=== PATIENT | female | born 1980 | race Caucasian/White ===

== ENCOUNTER 2016-10-23 11:34 | Emergency (ER) | payer OTHER ==
[~2016-10-23] VITALS: Ht 165.1 cm; Wt 45.5 kg
[~2016-10-23 11:34] MED LIST: ATIVAN0.5 MG PO; BENADRYL25 MG PO; BENTYL20 MG PO; DOXYCYCLINE HY100 MG PO; ENDOCET 5-3251 EACH PO; FLEXERIL10 MG PO; FLEXERIL5 MG PO; GUMMIES CHILDR1 EACH PO; HYDROCODON-ACE1 EAC7 PO; IBUPROFEN800 MG PO; LEXAPRO20 MG PO; MELATONIN5 M1 PO; MOTRIN400 MG PO; MOTRIN800 MG PO; OXAYDO5 MG PO; OXYCODONE HCL5 MG PO; PERCOCET 5/31 TABLET PO; TIZANIDINE HCL4 MG PO; TUMS DUAL ACTI1 EACH PO; TUMS500 MG PO; TYLENOL REGULA325 MG PO; ZOFRAN4 MG PO; ZOLOFT50 MG PO
[2016-10-23 12:11] LABS: HEMATOCRIT 38.1 % (36.0-46.0); MCH 29.6 PG (29.0-34.0); MCHC 35.2 G/DL (30.0-36.0); MCV 84.3 FL (83-99); PLATELET COUNT 211 K/uL (156-360); RBC DIS.WIDTH-CV 12.1 % (11.8-14.6); RBC DIS.WIDTH-SD 36.9 % (39-53); RED BLOOD COUNT 4.52 M/uL (3.80-5.20); WHITE BLOOD COUNT 7.9 K/uL (4.1-10.2)
[2016-10-23 12:22] LABS: CHLORIDE 108 mEq/L (99-109); POTASSIUM 3.8 mEq/L (3.7-5.4); SODIUM 140 mEq/L (136-147)
[2016-10-23 12:23] LABS: GLUCOSE 88 mg/dL (70-99)
[2016-10-23 12:25] LABS: ANION GAP 9 MEQ/L (2-14)
[2016-10-23 12:27] LABS: GFR ESTIMATE (CALCULATED) > 59 mL/min/; SERUM ETHYL ALCOHOL < 10 mg/dL
[2016-10-23 12:28] LABS: UREA NITROGEN (BUN) 14 mg/dL (9-23)
[2016-10-23 12:45] LABS: INTERNAL CONTROL VALID? YES
[2016-10-23 12:55] LABS: AMPHETAMINE NEGATIVE (500 ng/mL); BARBITURATES NEGATIVE (200 ng/mL); BENZODIAZEPINES NEGATIVE (150 ng/mL); COCAINE NEGATIVE (150 ng/mL); METHADONE NEGATIVE (200 ng/mL); METHAMPHETAMINE NEGATIVE (500 ng/mL); OPIATES (MORPHINE) NEGATIVE (100 ng/mL); OXYCODONE PRESUMPTIVE POSITIVE (100 ng/mL); PHENCYCLIDINE NEGATIVE (25 ng/mL); PROPOXYPHENE NEGATIVE (300 ng/mL); THC CANNABINOIDS NEGATIVE (50 ng/mL); TRICYCLIC ANTIDEPRESSANTS NEGATIVE (300 ng/mL)
[2016-10-23 12:56] LABS: INTERNAL CONTROLS VALID? YES
[2016-10-23 13:45] VITALS: BP 119/69
== END 2016-10-23 14:17 | disposition home or self-care (01) ==
LOC: EME 11:34
PROVIDERS: Emergency Medicine
DX: F43.24 Adjustment disorder with disturbance of conduct (principal); F17.200 Nicotine dependence, unspecified, uncomplicated
CPT/HCPCS: 80048; 84703; 85027; 90837; 99281; 99285; G0480

== ENCOUNTER 2017-08-28 00:25 | Emergency (ER) | payer OTHER ==
[~2017-08-28] VITALS: Ht 167.6 cm; Wt 47.1 kg
[2017-08-28 01:11] LABS: HEMATOCRIT 42.9 % (36.0-46.0); HEMOGLOBIN 14.9 G/DL (11.9-15.5); MCH 30.3 PG (29.0-34.0); MCHC 34.7 G/DL (30.0-36.0); MCV 87.4 FL (83-99); PLATELET COUNT 271 K/uL (156-360); RBC DIS.WIDTH-CV 12.6 % (11.8-14.6); RBC DIS.WIDTH-SD 39.9 % (39-53); RED BLOOD COUNT 4.91 M/uL (3.80-5.20); WHITE BLOOD COUNT 13.5 K/uL (4.1-10.2)
[2017-08-28 01:21] LABS: ALBUMIN 4.4 g/dL (3.2-4.8)
[2017-08-28 01:22] LABS: CHLORIDE 105 mEq/L (99-109); POTASSIUM 4.3 mEq/L (3.7-5.4); SODIUM 140 mEq/L (136-147)
[2017-08-28 01:24] LABS: GLUCOSE 109 mg/dL (70-99); TOTAL PROTEIN 7.5 g/dL (6.4-8.3)
[2017-08-28 01:26] LABS: TOTAL BILIRUBIN 0.5 mg/dL (0.0-1.0)
[2017-08-28 01:27] LABS: ALKALINE PHOSPHATASE 54 IU/L (3-129); SERUM ETHYL ALCOHOL < 10 mg/dL
[2017-08-28 01:28] LABS: CREATININE 0.8 mg/dL (0.6-1.3); GFR ESTIMATE (CALCULATED) > 59 mL/min/
[2017-08-28 01:29] LABS: AST (GOT) 12 IU/L (2-34); UREA NITROGEN (BUN) 13 mg/dL (9-23)
[2017-08-28 01:31] LABS: ALT (GPT) 11 IU/L (3-49)
[2017-08-28 01:38] LABS: QUANTITATIVE HCG < 4.0 MIU/ML
[2017-08-28 02:54] VITALS: BP 121/81
== END 2017-08-28 02:57 | disposition home or self-care (01) ==
LOC: EME 00:25
PROVIDERS: Emergency Medicine
DX: F11.10 Opioid abuse, uncomplicated (principal); F13.10 Sedative, hypnotic or anxiolytic abuse, uncomplicated; F17.200 Nicotine dependence, unspecified, uncomplicated; K21.9 Gastro-esophageal reflux disease without esophagitis; F41.9 Anxiety disorder, unspecified; K58.9 Irritable bowel syndrome, unspecified; M41.9 Scoliosis, unspecified; Z88.6 Allergy status to analgesic agent; Z88.5 Allergy status to narcotic agent
CPT/HCPCS: 80053; 81003; 84702; 85027; 99281; 99284; G0480